=== PATIENT | female | born 1980 | race American Indian/Alaskan Native ===

== ENCOUNTER 2017-04-01 12:41 | Inpatient (IN) | payer MEDICAID ==
[2017-04-01] MEDS ORDERED: COLACE PO PRN (13:47)
[2017-04-01] MEDS ORDERED: POLYCILLIN/NS 2 GM/100 ML 2 GM/100 ML BAG IV ONE (13:47)
[2017-04-01] MEDS ORDERED: TYLENOL PO PRN (13:47)
[2017-04-01] MEDS ORDERED: ZOFRAN IV PRN (13:47)
[2017-04-01] MEDS ORDERED: CELESTONE SOLUSPAN IM ONE (13:51)
--- NOTE | 2017-04-01 13:56 | History and Physical Report ---
History of Present Illness Date of examination: 04/01/17 Date of admission: 04/01/17 12:49 Chief complaint: Advanced Cervical Dilation History of present illness: Late entry to care at 29 1/7 weeks, course complicated by Advanced Cervical Dilation, CTX, Anemia, Vitamin D Deficiency, and HSV II. 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 Family/Genetic History: none Social history: single, smoking - Obstetrical History Expected Date of Delivery: 06/02/17 Actual Gestation: 31 Week(s) 1 Day(s) : 5 Para: 4 Hx # Term Pregnancies: 4 Number of Living Children: 4 #1 Infant Gender: Female year: 2,000 Birthweight: 2.608 kg Method of Delivery: Vaginal Gestational age at delivery: 38 Complications: none #2 Gender: Male year: 2,004 Birthweight: 3.374 kg Method of Delivery: Vaginal Gestational age at delivery: 37 #3 Gender: Female year: 2,007 Birthweight: 2.977 kg Method of Delivery: Vaginal Gestational age at delivery: 37 Complications: none #4 Gender: Male year: 2,014 Birthweight: 2.92 kg Method of Delivery: Vaginal Gestational age at delivery: 38 Medications and Allergies Allergies Allergy/AdvReac Type Severity Reaction Status Date / Time No Known Allergies Allergy Unverified 04/01/17 12:48 Active Meds: Active Medications Acetaminophen (Tylenol) 650 mg PO Q4H PRN PRN Reason: Pain MILD(1-3)/Fever >100.5/LEUNG Betamethasone Acet/Betameth SodPhos ([place] Soluspan) 12 mg IM ONCE ONE Stop: 04/01/17 13:52 Docusate Sodium (Colace) 100 mg PO Q12H PRN PRN Reason: Constipation Lactated Ringer's (Lactated Ringers) 500 mls @ 999 mls/hr IV BOLUS ONE Stop: 04/01/17 14:30 Ampicillin Sodium (Polycillin/Ns 1 Gm/50 Ml) 1 gm in 50 mls @ 100 mls/hr IV Q4HR ARUNA PRN Reason: Protocol Ampicillin Sodium (Polycillin/Ns 2 Gm/100 Ml) 2 gm in 100 mls @ 100 mls/hr IV ONCE ONE PRN Reason: Protocol Stop: 04/01/17 14:46 Multivitamins/Iron/Calcium ( Vitamin) 1 each PO QDAY ARUNA Ondansetron HCl (Zofran) 4 mg IV Q6H PRN PRN Reason: Nausea And Vomiting Zolpidem Tartrate (Ambien) 10 mg PO ONCE PRN PRN Reason: Sleep Review of Systems All systems: negative - Vital Signs Vital signs: Vital Signs Pulse BP 85 124/74 04/01/17 13:20 04/01/17 13:20 Temp Pulse Resp BP Pulse Ox 97.4 F L 96 H 18 124/74 99 04/01/17 13:23 04/01/17 13:26 04/01/17 13:23 04/01/17 13:23 04/01/17 13:26 - Physical Exam Breasts: Positive: normal Cardiovascular: Regular rate Lungs: Positive: Clear to auscultation, Normal air movement Abdomen: Positive: normal appearance, normal bowel sounds Genitourinary (Female): Positive: normal external genitalia, normal perenium Vagina: Positive: normal moisture Uterus: Positive: enlarged Anus/Rectum: Positive: normal perianal skin Extremities: Positive: normal - Obstetrical FHR: category 1 Uterine Contraction Monitor Mode: External Cervical Dilatation: 4 (Intact) Cervical Effacement Percentage: 50 station: -3 Uterine Contraction Pattern: Irregular Uterine Tone Measurement Phase: Resting Uterine Contraction Intensity: Mild Results All other labs normal. Assessment and Plan A: IUP @ 31 1/7 Weeks Category I Tracing PTL/Advanced Cervical Dilatation P: Admit to L&D per routine orders Growth OBUS ABX Prophylaxis IV Hydration Bedrest Consult Betamethsome Series Consult Dr. Schultz due to Labor
[2017-04-01] MEDS ORDERED: LACTATED RINGERS 500 ML IV ONE (14:00)
--- NOTE | 2017-04-01 14:14 | Admit Criteria Form ---
Admission Criteria Documentation: LABOR, THREATENED Clinical Indications for Admission to Inpatient Care (Place 'X' for any and all applicable criteria): Admission to inpatient status for two mid-nights or more is indicated for ANY ONE of the following 1,2,3: [ ]I. Condition requiring premature delivery (eg, premature rupture of membranes with nonreassuring status, chorioamnionitis) [A]. See Vaginal Delivery guideline as appropriate [ ]II. premature rupture of membranes (PPROM) (eg, for monitoring of well-being, development of chorioamnionitis)[A][B] [ ]III. distress or demise [ ]IV. Significant maternal disease (eg, infection) identified (eg, pyelonephritis, pneumonia) that requires initial inpatient treatment (eg, IV antibiotics, close monitoring) [ ]V. Significant vaginal bleeding or any vaginal bleeding with known placental previa, vasa previa, or placenta accreta.(7)(8) See Delivery guideline as appropriate. [ ]. Complications of tocolytic treatment (eg, pulmonary edema, hypotension) (9)(10) [X]VII. Inpatient admission required rather than observation care (Also use Labor, Threatened: Observation Care Criteria as appropriate) because of 1 or more of the following: [X ]a) Continued monitoring that requires inpatient care [ ]b) Tocolytic therapy needed that requires inpatient care [ ]c) Inability to stop labor. See Vaginal Delivery or Delivery guideline as appropriate. Extended stay beyond goal length of stay may be needed for (1)(2) [ ]a) Significant infection (eg, pneumonia,chorioamnionitis)(17) [ ]b) Continued uterine contractions [ ]c) demise [ ]d) Continued vaginal bleeding or placental abnormality [ ]e) Complications of tocolytic treatment (eg, pulmonary edema, hypotension)( 15) [ ]f) Expectant management of premature rupture of membranes[A] The original [employer] content created by Rafi Steen has been revised. The portions of the content which have been revised are identified through the use of italic text or in bold, and Rafi Steen has neither reviewed nor approved the modified material. All other unmodified content is copyright [facility] [facility] [employer]. Please see references footnoted in the original [facility] edition 2017 Admission Criteria Met: Yes
[2017-04-01 15:45] LABS: Basophils % (Auto) 0.2 % (0.0-1.8); Eosinophils % (Auto) 0.8 % (0.0-4.3); Hematocrit 27.9 % (30.3-42.9); Hemoglobin 8.7 gm/dl (10.1-14.3); Mean Corpuscular HGB Conc 31 % (30-34); Mean Corpuscular Hemoglobin 23 pg (28-32); Mean Corpuscular Volume 73 fl (79-97); Platelet Count 176 K/mm3 (140-440); Red Blood Count 3.81 M/mm3 (3.65-5.03); White Blood Count 14.9 K/mm3 (4.5-11.0)
[2017-04-01] MEDS ORDERED: MAGNESIUM SULFATE 4GM/100ML 4 GM/100 ML BAG IV ONE (16:30)
[2017-04-01] MEDS: MAGNESIUM SULFATE 40GM/1000ML 40 GM/1,000 ML BAG IV SCH (17:53)
[2017-04-01] MEDS ORDERED: LACTATED RINGERS 1,000 ML ONE (19:42)
[2017-04-01] MEDS: POLYCILLIN/NS 1 GM/50 ML 1 GM/50 ML BAG IV SCH (19:52)
[2017-04-01] MEDS: AMBIEN PO PRN (21:54)
[2017-04-02] MEDS: POLYCILLIN/NS 1 GM/50 ML 1 GM/50 ML BAG IV SCH (01:40)
[2017-04-02 02:32] LABS: Bacteria,Urine 1+ /HPF (Negative); Bilirubin,Urine NEG (Negative); Blood,Urine NEG (Negative); Ketones,Urine TR mg/dL (Negative); Leukocyte Esterase,Urine MOD (Negative); Mucus,Urine FEW /HPF; Nitrite,Urine NEG (Negative); Protein,Urine <15 mg/dL mg/dL (Negative); Urobilinogen,Urine < 2.0 mg/dL (<2.0)
--- NOTE | 2017-04-02 07:11 | Ultrasound Report ---
Gestation: Single Position: Cephalic Heart Rate: 152 BPM
[2017-04-02] MEDS: PRENATAL VITAMIN PO SCH (10:14)
[2017-04-02] MEDS ORDERED: LACTATED RINGERS 1,000 ML ONE (13:04)
[2017-04-02] MEDS: MAGNESIUM SULFATE 40GM/1000ML 40 GM/1,000 ML BAG IV SCH (13:23)
--- NOTE | 2017-04-02 14:22 | Progress Note ---
Assessment and Plan - Patient Problems (1) 31 weeks gestation of Onset Date: 04/02/17 Current Visit: Yes Status: Acute Plan to address problem: A: IUP @ 31 2/7 weeks contractions - resolved with magnesium tocolysis Advanced cervical dilatation - stable. P: Continue with current management Awaiting APA consultation (2) contractions Onset Date: 04/02/17 Current Visit: Yes Status: Acute Subjective - Subjective Date of service: 04/02/17 Principal diagnosis: IUP @ 31 2/7 weeks; PTL; Advanced cervical dilatation Interval history: Pt states she is feeling well. Denies further contractions, and currently on Magnesium Sulfates @ 2gm/hr and Ampicillin. She received her 2nd dose of steroids. Patient reports: movement normal, no new complaints, no loss of fluid, no vaginal bleeding, no contractions Objective - Vital Signs Vital Signs: Vital Signs - 12hr 04/02/17 04/02/17 04/02/17 02:27 02:32 02:37 Temperature Pulse Rate 93 H 97 H 91 H Respiratory Rate Blood Pressure O2 Sat by Pulse 98 98 99 Oximetry 04/02/17 04/02/17 04/02/17 02:42 02:47 02:52 Temperature Pulse Rate 93 H 93 H 91 H Respiratory Rate Blood Pressure O2 Sat by Pulse 99 98 99 Oximetry 04/02/17 04/02/17 04/02/17 02:57 03:00 03:02 Temperature Pulse Rate 90 87 91 H Respiratory Rate Blood Pressure 117/55 O2 Sat by Pulse 99 99 Oximetry 04/02/17 04/02/17 04/02/17 03:07 03:12 03:17 Temperature Pulse Rate 95 H 94 H 95 H Respiratory Rate Blood Pressure O2 Sat by Pulse 98 99 98 Oximetry 04/02/17 04/02/17 04/02/17 03:22 03:27 03:32 Temperature Pulse Rate 100 H 99 H 96 H Respiratory Rate Blood Pressure O2 Sat by Pulse 99 98 98 Oximetry 04/02/17 04/02/17 04/02/17 03:37 03:42 03:47 Temperature Pulse Rate 96 H 95 H 94 H Respiratory Rate Blood Pressure O2 Sat by Pulse 98 98 98 Oximetry 04/02/17 04/02/17 04/02/17 03:52 03:57 04:01 Temperature Pulse Rate 94 H 96 H 91 H Respiratory Rate Blood Pressure 107/56 O2 Sat by Pulse 98 98 Oximetry 04/02/17 04/02/17 04/02/17 05:00 08:08 08:09 Temperature Pulse Rate 90 92 H 95 H Respiratory Rate Blood Pressure 118/64 106/66 O2 Sat by Pulse 99 Oximetry 04/02/17 04/02/17 04/02/17 08:14 08:19 09:01 Temperature Pulse Rate 100 H 95 H 95 H Respiratory Rate Blood Pressure 107/60 O2 Sat by Pulse 98 99 Oximetry 04/02/17 04/02/17 04/02/17 10:00 10:05 10:10 Temperature Pulse Rate 92 H 94 H 96 H Respiratory Rate Blood Pressure 112/63 O2 Sat by Pulse 99 98 Oximetry 04/02/17 04/02/17 04/02/17 10:15 10:20 10:21 Temperature Pulse Rate 97 H 94 H 94 H Respiratory Rate Blood Pressure O2 Sat by Pulse 99 99 89 Oximetry 04/02/17 04/02/17 04/02/17 10:22 10:23 10:25 Temperature 96.7 F L Pulse Rate 90 92 H 94 H Respiratory 20 Rate Blood Pressure 122/76 122/76 O2 Sat by Pulse 100 Oximetry 04/02/17 04/02/17 04/02/17 10:30 10:35 10:40 Temperature Pulse Rate 95 H 96 H 92 H Respiratory Rate Blood Pressure O2 Sat by Pulse 99 100 100 Oximetry 04/02/17 04/02/17 04/02/17 10:45 10:50 10:55 Temperature Pulse Rate 94 H 93 H 92 H Respiratory Rate Blood Pressure O2 Sat by Pulse 99 99 100 Oximetry 04/02/17 04/02/17 04/02/17 11:00 11:01 12:01 Temperature Pulse Rate 93 H 90 89 Respiratory Rate Blood Pressure 115/82 110/65 O2 Sat by Pulse 99 Oximetry 04/02/17 04/02/17 04/02/17 13:01 13:06 13:07 Temperature 97.3 F L Pulse Rate 91 H 89 91 H Respiratory 20 Rate Blood Pressure 128/76 132/60 132/60 O2 Sat by Pulse 86 99 Oximetry 04/02/17 04/02/17 04/02/17 13:12 13:17 13:22 Temperature Pulse Rate 87 93 H 94 H Respiratory Rate Blood Pressure O2 Sat by Pulse 98 100 100 Oximetry 04/02/17 14:01 Temperature Pulse Rate 86 Respiratory Rate Blood Pressure 117/72 O2 Sat by Pulse Oximetry - Exam Breasts: deferred Lungs: Clear to auscultation Abdomen: Present: normal appearance, soft Uterus: Present: normal FHR: category 1 Uterine Contraction Monitor Mode: External - Labs Labs: Abnormal Labs 04/01/17 04/01/17 04/02/17 14:35 22:01 01:50 WBC 14.9 H Hgb 8.7 L Hct 27.9 L MCV 73 L MCH 23 L RDW 21.0 H Lymph % (Auto) 12.1 L [place] % (Auto) 8.0 H [place] # 1.2 H Seg Neutrophils % 78.9 H Seg Neutrophils # 11.8 H Magnesium 4.40 H Urine WBC (Auto) 25.0 H 04/02/17 04/02/17 05:51 12:06 WBC Hgb Hct MCV MCH RDW Lymph % (Auto) [place] % (Auto) [place] # Seg Neutrophils % Seg Neutrophils # Magnesium 5.20 H 5.10 H Urine WBC (Auto) Laboratory Results - last 24 hr 04/01/17 04/01/17 04/01/17 14:35 14:35 22:01 WBC 14.9 H RBC 3.81 Hgb 8.7 L Hct 27.9 L MCV 73 L MCH 23 L MCHC 31 RDW 21.0 H Plt Count 176 Lymph % (Auto) 12.1 L [place] % (Auto) 8.0 H Eos % (Auto) 0.8 Baso % (Auto) 0.2 Lymph # 1.8 [place] # 1.2 H Eos # 0.1 Baso # 0.0 Seg Neutrophils % 78.9 H Seg Neutrophils # 11.8 H Magnesium 4.40 H Urine Color Urine Turbidity Urine pH Ur Specific [place] Urine Protein Urine Glucose (UA) Urine Ketones Urine Blood Urine Nitrite Urine Bilirubin Urine Urobilinogen Ur Leukocyte Esterase Urine WBC (Auto) Urine RBC (Auto) U Epithel Cells (Auto) Urine Bacteria (Auto) Urine Mucus Blood Type O POSITIVE Antibody Screen Negative 04/02/17 04/02/17 04/02/17 01:50 05:51 12:06 WBC RBC Hgb Hct MCV MCH MCHC RDW Plt Count Lymph % (Auto) [place] % (Auto) Eos % (Auto) Baso % (Auto) Lymph # [place] # Eos # Baso # Seg Neutrophils % Seg Neutrophils # Magnesium 5.20 H 5.10 H Urine Color Straw Urine Turbidity Clear Urine pH 7.0 Ur Specific [place] 1.013 Urine Protein <15 mg/dl Urine Glucose (UA) 50 Urine Ketones Tr Urine Blood Neg Urine Nitrite Neg Urine Bilirubin Neg Urine Urobilinogen < 2.0 Ur Leukocyte Esterase Mod Urine WBC (Auto) 25.0 H Urine RBC (Auto) 3.0 U Epithel Cells (Auto) < 1.0 Urine Bacteria (Auto) 1+ Urine Mucus Few Blood Type Antibody Screen
[2017-04-02] MEDS ORDERED: CELESTONE SOLUSPAN IM ONE (17:00)
--- NOTE | 2017-04-02 18:27 | Consultation ---
History of Present Illness Consult date: 04/02/17 Requesting physician: JAXON NELSON Reason for consult: contractions History of present illness: Thank you for your recent consultation regarding the above named patient. As you are aware, this is a 36 year old para 4004 at 31-32 weeks gestation for whom I recently provided a perinatology consultation. Current Presentation: The patient [facility] with Advanced Cervical Dilation, CTX, Anemia, Vitamin D Deficiency, and HSV II. Her initial exam was 4 cm dilated and the follow-up exam She has been admitted due to cervical dilation. The patient currently denies leakage of fluid per vagina or vaginal bleeding. Patient admits to continued lower abdominal and back discomfort. Patient denies fever, chills, nausea, vomiting or diarrhea. At the time of my evaluation the patient was relatively comfortable but admitted to ongoing uterine contractions. Nitrazine testing is negative. Past Obstetrical Medical and Surgical History: See details in patient's chart. 2000: at term. BW: 2608 kg 2004: at term. 2007: at term. 2014: at term [facility] Ultrasonography: ? See notes in patients chart ? Cephalic. 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 Family/Genetic History: none - Obstetrical History : 5 #1 Gender: Female year: 2,000 Birthweight: 2.608 kg Method of Delivery: Vaginal Gestational age at delivery: 38 Complications: none #2 Gender: Male year: 2,004 Birthweight: 3.374 kg Method of Delivery: Vaginal Gestational age at delivery: 37 #3 Gender: Female year: 2,007 Birthweight: 2.977 kg Method of Delivery: Vaginal Gestational age at delivery: 37 Complications: none #4 Infant Gender: Male year: 2,014 Birthweight: 2.92 kg Method of Delivery: Vaginal Gestational age at delivery: 38 Medications and Allergies Allergies Allergy/AdvReac Type Severity Reaction Status Date / Time No Known Allergies Allergy Unverified 04/01/17 12:48 Home Medications Medication Instructions Recorded Confirmed Last Taken Type Ferrous Sulfate 325 mg PO BID 04/01/17 04/01/17 04/01/17 09:00 History 325 mg Tablet 1 tab PO DAILY 04/01/17 04/01/17 04/01/17 09:00 History 1 Active Meds: Active Medications Acetaminophen (Tylenol) 650 mg PO Q4H PRN PRN Reason: Pain MILD(1-3)/Fever >100.5/LEUNG Last Admin: 04/02/17 13:40 Dose: 650 mg Docusate Sodium (Colace) 100 mg PO Q12H PRN PRN Reason: Constipation Magnesium Sulfate (Magnesium Sulfate 40gm/1000ml) 40 gm in 1,000 mls @ 50 mls/ hr IV DIRECT ARUNA PRN Reason: 2 GM/HR Last Admin: 04/02/17 13:23 Dose: 2 gm/hr, 50 mls/hr Multivitamins/Iron/Calcium ( Vitamin) 1 each PO QDAY ARUNA Last Admin: 04/02/17 10:14 Dose: 1 each Ondansetron HCl (Zofran) 4 mg IV Q6H PRN PRN Reason: Nausea And Vomiting Zolpidem Tartrate (Ambien) 10 mg PO ONCE PRN PRN Reason: Sleep Last Admin: 04/01/17 21:54 Dose: 10 mg - Vital Signs Vital signs: Vital Signs Pulse BP 85 124/74 04/01/17 13:20 04/01/17 13:20 Temp Pulse Resp BP Pulse Ox 97.6 F 81 20 102/50 99 04/02/17 16:21 04/02/17 18:02 04/02/17 16:21 04/02/17 18:02 04/02/17 16:20 Results Result Diagrams: 04/01/17 14:35 Abnormal lab results 04/01/17 04/02/17 04/02/17 Range/Units 22:01 01:50 05:51 Magnesium 4.40 H 5.20 H (1.7-2.3) mg/dL Urine WBC (Auto) 25.0 H (0.0-6.0) /HPF 04/02/17 Range/Units 12:06 Magnesium 5.10 H (1.7-2.3) mg/dL Urine WBC (Auto) (0.0-6.0) /HPF All other labs normal. Assessment and Plan ASSESSMENT / DIAGNOSIS ? As stated above this is an IUP at 31+ weeks with cervical dilatation ? Advanced cervical dilation. ? Continued contractions. ? It would appear that the current presentation is due to uterine activity. ? The aforementioned findings place this patient at significant risk for spontaneous RECOMMENDATIONS & ORDERS 1. [facility]ued [facility] 2. We are in agreement with previous MgSO4 tocolysis, neuroprotection and observation 3. Betamethasone to enhance lung maturation 4. Follow-up bedside ulrasound report. 5. Heart Assessment via NST q shift 6. Continuous uterine tocodynametry while admitted 7. Intravenous fluid hydration: 8. Testing to rule out bacterial vaginosis may be indicated in this patient. As you are aware, treatment of bacterial vaginosis in patients who are at increased risk for spontaneous or who are symptomatic of BV has been shown to decrease the likelihood of . 9. If this patient is subsequently found to have BV we would recommend an agent with improved coverage of Gardnerella vaginalis and other facultatively anaerobic gram-variable organisms associated with BV such as Metronidazole 500 mg BID x 7 days (if clinically indicated) 10. Instruct nurses to call M.D. for > 6 contractions per hour 11. If uterine contractions persist or worsen or if there is further cervical dilation; this patient may NOT be a candidate for additional tocolysis and preparations should be made for the possibility of a premature . 12. If Urine culture shows evidence of infection treat as follows: Bactrim DS 1 tablet P.O. BID x 5 days Follow-up urine culture sensitivity when available. 13. Continue with Procardia. 14. Re-evaluate cervix after 24-48 hours. 15. Instruct nurses to call M.D. for any of the following: Temp > 101 Acute onset abdominal pain, Vaginal bleeding or Rupture of membranes Acute pulmonary symptoms (shortness of breath, dyspnea, hemoptysis) 16. At present, an expectant strategy should allow for prolongation ; however, the previously noted contraindications to continued tocolysis noted above should also be appreciated. Thank you for allowing us to participate in the care of this patient. We look forward to the opportunity to assist in her continued management. If you have any questions, please contact our office at [phone].
[2017-04-02] MEDS: AMBIEN PO PRN (21:31)
[2017-04-02] MEDS: STADOL IV PRN (21:49)
[2017-04-03] MEDS ORDERED: LACTATED RINGERS 1,000 ML ONE ×2 (02:06→17:28)
[2017-04-03] MEDS: MAGNESIUM SULFATE 40GM/1000ML 40 GM/1,000 ML BAG IV SCH (07:24)
--- NOTE | 2017-04-03 08:10 | Progress Note ---
Assessment and Plan - Patient Problems (1) 31 weeks gestation of Onset Date: 04/02/17 Current Visit: Yes Status: Acute Plan to address problem: A: IUP @ 31 3/7 weeks contractions - resolved with magnesium tocolysis Bacteria Vaginosis Advanced cervical dilatation - stable. P: Continue with current management Will D/C Magnesium sulfate and begin Procardia Currently on Flagyl 500mg BID Appreciate APA consultation (2) contractions Onset Date: 04/02/17 Current Visit: Yes Status: Acute Subjective - Subjective Date of service: 04/03/17 Principal diagnosis: IUP @ 31 3/7 weeks; PTL; Advanced cervical dilatation Interval history: Pt states she is feeling well. Denies further contractions, and currently on Magnesium Sulfates @ 2gm/hr and Ampicillin. She received her 2nd dose of steroids. Patient reports: movement normal, no new complaints, no loss of fluid, no vaginal bleeding, no contractions Objective - Vital Signs Vital Signs: Vital Signs - 12hr 04/02/17 04/02/17 04/02/17 21:02 21:30 21:54 Temperature 97.0 F L Pulse Rate 87 0 L 85 Respiratory 18 Rate Blood Pressure 110/59 0/0 O2 Sat by Pulse 99 Oximetry 04/02/17 04/02/17 04/02/17 21:59 22:04 22:09 Temperature Pulse Rate 95 H 93 H 90 Respiratory Rate Blood Pressure O2 Sat by Pulse 97 98 97 Oximetry 04/02/17 04/02/17 04/02/17 22:11 22:13 22:14 Temperature Pulse Rate 85 85 86 Respiratory Rate Blood Pressure 118/68 O2 Sat by Pulse 94 94 Oximetry 04/02/17 04/02/17 04/02/17 22:19 22:24 22:25 Temperature Pulse Rate 86 85 80 Respiratory Rate Blood Pressure O2 Sat by Pulse 95 95 94 Oximetry 04/02/17 04/02/17 04/02/17 22:29 22:34 22:39 Temperature Pulse Rate 81 83 82 Respiratory Rate Blood Pressure O2 Sat by Pulse 97 95 95 Oximetry 04/02/17 04/02/17 04/02/17 22:44 22:49 22:54 Temperature Pulse Rate 79 82 81 Respiratory Rate Blood Pressure O2 Sat by Pulse 96 96 95 Oximetry 04/02/17 04/02/17 04/02/17 22:59 23:00 23:04 Temperature Pulse Rate 81 82 82 Respiratory Rate Blood Pressure 107/57 O2 Sat by Pulse 95 96 Oximetry 04/02/17 04/02/17 04/02/17 23:09 23:14 23:19 Temperature Pulse Rate 81 81 82 Respiratory Rate Blood Pressure O2 Sat by Pulse 96 96 96 Oximetry 04/02/17 04/02/17 04/02/17 23:24 23:29 23:34 Temperature Pulse Rate 84 81 81 Respiratory Rate Blood Pressure O2 Sat by Pulse 97 96 96 Oximetry 04/02/17 04/02/17 04/02/17 23:39 23:44 23:49 Temperature Pulse Rate 80 82 82 Respiratory Rate Blood Pressure O2 Sat by Pulse 96 96 96 Oximetry 04/02/17 04/02/17 04/03/17 23:54 23:59 00:01 Temperature Pulse Rate 78 83 75 Respiratory Rate Blood Pressure 100/55 O2 Sat by Pulse 96 96 Oximetry 04/03/17 04/03/17 04/03/17 00:04 00:09 00:14 Temperature Pulse Rate 82 77 81 Respiratory Rate Blood Pressure O2 Sat by Pulse 97 98 97 Oximetry 04/03/17 04/03/17 04/03/17 00:19 00:24 00:29 Temperature Pulse Rate 81 84 80 Respiratory Rate Blood Pressure O2 Sat by Pulse 97 97 99 Oximetry 04/03/17 04/03/17 04/03/17 00:34 00:40 00:45 Temperature Pulse Rate 81 86 80 Respiratory Rate Blood Pressure O2 Sat by Pulse 98 99 98 Oximetry 04/03/17 04/03/17 04/03/17 00:50 00:55 01:00 Temperature Pulse Rate 85 79 78 Respiratory Rate Blood Pressure 100/55 O2 Sat by Pulse 100 100 100 Oximetry 04/03/17 04/03/17 04/03/17 01:05 01:10 01:15 Temperature Pulse Rate 82 80 81 Respiratory Rate Blood Pressure O2 Sat by Pulse 99 98 99 Oximetry 04/03/17 04/03/17 04/03/17 01:16 01:20 01:25 Temperature Pulse Rate 71 79 77 Respiratory Rate Blood Pressure O2 Sat by Pulse 89 97 97 Oximetry 04/03/17 04/03/17 04/03/17 01:30 01:35 01:40 Temperature Pulse Rate 77 77 81 Respiratory Rate Blood Pressure O2 Sat by Pulse 97 98 97 Oximetry 04/03/17 04/03/17 04/03/17 01:45 01:50 01:55 Temperature Pulse Rate 77 79 81 Respiratory Rate Blood Pressure O2 Sat by Pulse 97 98 98 Oximetry 04/03/17 04/03/17 04/03/17 02:00 02:02 02:06 Temperature Pulse Rate 79 83 79 Respiratory Rate Blood Pressure 103/66 O2 Sat by Pulse 98 97 Oximetry 04/03/17 04/03/17 04/03/17 02:11 03:00 04:01 Temperature Pulse Rate 73 75 78 Respiratory Rate Blood Pressure 97/54 104/57 O2 Sat by Pulse 98 Oximetry 04/03/17 04/03/17 04/03/17 05:00 06:01 07:00 Temperature Pulse Rate 81 80 80 Respiratory Rate Blood Pressure 97/55 97/56 100/55 O2 Sat by Pulse Oximetry 04/03/17 04/03/17 04/03/17 07:48 07:49 07:54 Temperature Pulse Rate 82 84 90 Respiratory Rate Blood Pressure 123/71 O2 Sat by Pulse 100 99 Oximetry 04/03/17 04/03/17 08:01 08:05 Temperature 98.3 F Pulse Rate 81 66 Respiratory 16 Rate Blood Pressure 112/58 115/65 O2 Sat by Pulse Oximetry - Exam Breasts: deferred Cardiovascular: Regular rate Lungs: Clear to auscultation Abdomen: Present: normal appearance Uterus: Present: normal FHR: category 1 Uterine Contraction Monitor Mode: External - Labs Labs: Abnormal Labs 04/01/17 04/01/17 04/02/17 14:35 22:01 01:50 WBC 14.9 H Hgb 8.7 L Hct 27.9 L MCV 73 L MCH 23 L RDW 21.0 H Lymph % (Auto) 12.1 L [place] % (Auto) 8.0 H [place] # 1.2 H Seg Neutrophils % 78.9 H Seg Neutrophils # 11.8 H Magnesium 4.40 H Urine WBC (Auto) 25.0 H 04/02/17 04/02/17 04/02/17 05:51 12:06 19:41 WBC Hgb Hct MCV MCH RDW Lymph % (Auto) [place] % (Auto) [place] # Seg Neutrophils % Seg Neutrophils # Magnesium 5.20 H 5.10 H 4.80 H Urine WBC (Auto) 04/03/17 04/03/17 00:37 05:18 WBC Hgb Hct MCV MCH RDW Lymph % (Auto) [place] % (Auto) [place] # Seg Neutrophils % Seg Neutrophils # Magnesium 5.40 H 5.50 H Urine WBC (Auto) Laboratory Results - last 24 hr 04/02/17 04/02/17 04/03/17 12:06 19:41 00:37 Magnesium 5.10 H 4.80 H 5.40 H 04/03/17 05:18 Magnesium 5.50 H
[2017-04-03 09:06] LABS: Urine Drugs of Abuse Note Disclamer
[2017-04-03] MEDS: PRENATAL VITAMIN PO SCH (09:42)
[2017-04-03] MEDS: FLAGYL PO SCH ×2 (09:43→23:39)
[2017-04-03] MEDS: PROCARDIA*For Tocolysis only PO SCH ×2 (09:43→17:33)
--- NOTE | 2017-04-03 16:00 | Consultation ---
History of Present Illness Reason for consult: other (Patient is currently 31.3 weeks The patient was admitted to [facility] with Advanced Cervical Dilation and CTX, In addition patient diagnosed with Anemia, Vitamin D Deficiency, and HSV II. Resolved contractions S/P MgSO4. Currently on PO Procardia and S/P BMZ for FLM Denies VB, ADB pain , and regular contractions. 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 Family/Genetic History: none - Obstetrical History : 5 #1 Gender: Female year: 2,[birth year] Birthweight: 2.608 kg Method of Delivery: Vaginal Gestational age at delivery: 38 Complications: none #2 Infant Gender: Male year: 2[birth year] Birthweight: 3.374 kg Method of Delivery: Vaginal Gestational age at delivery: 37 #3 Infant Gender: Female year: 2,007 Birthweight: 2.977 kg Method of Delivery: Vaginal Gestational age at delivery: 37 Complications: none #4 Infant Gender: Male year: 2,014 Birthweight: 2.92 kg Method of Delivery: Vaginal Gestational age at delivery: 38 Medications and Allergies Allergies Allergy/AdvReac Type Severity Reaction Status Date / Time No Known Allergies Allergy Unverified 04/01/17 12:48 Home Medications Medication Instructions Recorded Confirmed Last Taken Type Ferrous Sulfate 325 mg PO BID 04/01/17 04/01/17 04/01/17 09:00 History 325 mg Tablet 1 tab PO DAILY 04/01/17 04/01/17 04/01/17 09:00 History 1 Active Meds: Active Medications Acetaminophen (Tylenol) 650 mg PO Q4H PRN PRN Reason: Pain MILD(1-3)/Fever >100.5/LEUNG Last Admin: 04/02/17 13:40 Dose: 650 mg Butorphanol Tartrate (Stadol) 2 mg IV Q2H PRN PRN Reason: Labor Pain Last Admin: 04/02/17 21:49 Dose: 2 mg Docusate Sodium (Colace) 100 mg PO Q12H PRN PRN Reason: Constipation Metronidazole (Flagyl) 500 mg PO Q12HR [facility] Last Admin: 04/03/17 09:43 Dose: 500 mg Multivitamins/Iron/Calcium ( Vitamin) 1 each PO QDAY [facility] Last Admin: 04/03/17 09:42 Dose: 1 each Nifedipine (Procardia*For Tocolysis Only*) 10 mg PO Q8H ARUNA Last Admin: 04/03/17 09:43 Dose: 10 mg Ondansetron HCl (Zofran) 4 mg IV Q6H PRN PRN Reason: Nausea And Vomiting Zolpidem Tartrate (Ambien) 10 mg PO ONCE PRN PRN Reason: Sleep Last Admin: 04/02/17 21:31 Dose: 10 mg Review of Systems Constitutional: no fever, no chills Eyes: deferred Ears, nose, mouth and throat: deferred Cardiovascular: no chest pain, no syncope, no shortness of breath Respiratory: no shortness of breath Breasts: deferred Genitourinary: other (back pain ), no vaginal bleeding, no vaginal discharge, no pelvic pain Neurological: no syncope Psychiatric: no depression Hematologic/Lymphatic: no easy bleeding Allergic/Immunologic: no wheezing - Vital Signs Vital signs: Vital Signs Pulse BP 85 124/74 04/01/17 13:20 04/01/17 13:20 Temp Pulse Resp BP Pulse Ox 98.3 F 91 H 16 126/66 99 04/03/17 08:05 04/03/17 13:50 04/03/17 08:05 04/03/17 13:50 04/03/17 07:54 - Physical Exam Breasts: Positive: deferred Cardiovascular: Regular rate Lungs: Positive: Normal air movement Abdomen: Negative: tenderness, guarding Extremities: Negative: tenderness - Obstetrical FHR: category 1 (previous tracing) Uterine Contraction Monitor Mode: External (no contraction palpable. Patient to be placed on TOCO) Cervical Dilatation: 4 (Dr Aleksey Newell perform SVE 04/02/17 which was stable from previous exam ) Results Result Diagrams: 04/01/17 14:35 Abnormal lab results 04/02/17 04/03/17 04/03/17 Range/Units 19:41 00:37 05:18 Magnesium 4.80 H 5.40 H 5.50 H (1.7-2.3) mg/dL All other labs normal. Assessment and Plan ASSESSMENT / DIAGNOSIS 1. As stated above this is an IUP at 31.3 weeks with cervical dilatation 2. Advanced cervical dilation. 3. Resolved contraction S/P MgSO4 4. S/P BMZ for FLM 5. Po Procardia 6. It would appear that the presentation was due to uterine activity. 7 Anemia 8. S/P NICU RECOMMENDATIONS & ORDERS 1. Continue with Procardia. 2. Re-evaluate cervix 4. Document Negative cultures 5. May consider discharge home with no regular contractions, no cervical change , no /maternal compromise, and afebrile status Thank you for allowing us to participate in the care of this patient. We look forward to the opportunity to assist in her continued management. If you have any questions, please contact our office at [phone].
[2017-04-03] MEDS: STADOL IV PRN (17:33)
[2017-04-03] MEDS: AMBIEN PO PRN (23:39)
[2017-04-04] MEDS: PROCARDIA*For Tocolysis only PO SCH ×2 (02:28→10:44)
[2017-04-04] MEDS ORDERED: LACTATED RINGERS 1,000 ML ONE (05:46)
[2017-04-04] MEDS ORDERED: LACTATED RINGERS 1,000 ML IV SCH (06:00)
[2017-04-04 08:02] VITALS: BP 130/73
[2017-04-04] MEDS: PRENATAL VITAMIN PO SCH (10:44)
[2017-04-04] MEDS: FLAGYL PO SCH (10:44)
--- NOTE | 2017-04-04 12:27 | Discharge Summary ---
Providers - Providers Date of Admission: 04/01/17 13:47 Date of discharge: 04/04/17 Attending physician: SULTANA JARAMILLO MD 04/01/17 13:47 Consult to Physician [CONS] Routine Consulting Provider: KAILASH BAY Reason For Exam: advanced cervical dilation Place consult to:: Notified:: yes Phone number called:: [phone] Was contact made?: Yes If yes, spoke with:: Elicia Grider called:: 16:54 04/02/17 06:48 Consult to Physician [CONS] Routine Consulting Provider: DONNA WATSON I Reason For Exam: PTL at [address] consult to:: [facility] Notified:: ANSWERING SERVICE Phone number called:: [phone] Was contact made?: Yes If yes, spoke with:: Time called:: 07:20 Comment:: SPOKE WITH Primary care physician: SULTANA JARAMILLO MD Hospitalization Reason for admission: IUP - , labor Other procedures: none complications: none Discharge diagnosis: other (IUP @ 31 4/7 weeks; PTL - resolved; Advanced cervical dilatation) Hospital course: Pt is a 36yo BF EGA 31 4/7 weeks admitted for labor and advanced cervical dilatation, resolved with IV hydration, IV Magnesium sulfate tocolysis and now on PO Procardia. She received IV Ampicillin, IM Betamethasone and PO Flagyl, and is currently stable without contractions or cervical change, and cleared for discharge as per [facility] consultation. Condition at discharge: Good Disposition: DC-01 TO HOME OR SELFCARE - Discharge Diagnoses (1) 31 weeks gestation of Status: Acute (2) contractions Status: Resolved Plan - Discharge Medications Prescriptions: metroNIDAZOLE [Flagyl TAB] 500 mg PO Q12HR #14 tablet NIFEdipine 10 mg PO TID #30 cap - Provider Discharge Summary Activity: routine, no sex for 6 weeks, no heavy lifting 4 weeks, no strenuous exercise Diet: routine Instructions: routine Additional instructions: [] Smoking cessation referral if applicable(refer to patient education folder for contact #) [] Refer to [facility] Booklet Call your doctor immediately for: * Fever > 100.5 * Heavy vaginal bleeding ( >1 pad per hour) * Severe persistent headache * Shortness of breath * Reddened, hot, painful area to leg or breast * Drainage or odor from incision. * Keep incision clean and dry at all times and follow doctor's instructions regarding bathing/showering - Follow up plan Follow up: SULTANA MALONE MD [Primary Care Provider] - 3 Days DONNA WATSON MD [Staff Physician] - 3 Days
== END 2017-04-04 14:50 | disposition home or self-care (01) | DRG 778 ==
LOC: TRG 12:41 → LD 12:42 → TRG 12:49 → LD 12:49 → OBSVTOIN 13:47
PROVIDERS: ADMIT Obstetrics & Gynecology; ATTEND Obstetrics & Gynecology
DX: O60.03 Preterm labor without delivery, third trimester (principal); O62.0 Primary inadequate contractions; O99.013 Anemia complicating pregnancy, third trimester; D64.9 Anemia, unspecified; O99.113 Other diseases of the blood and blood-forming organs and certain disorders involving the immune mechanism complicating pregnancy, third trimester; O98.513 Other viral diseases complicating pregnancy, third trimester; B00.9 Herpesviral infection, unspecified; Z3A.31 31 weeks gestation of pregnancy
CPT/HCPCS: 36415; 76815; 80307; 81001; 83735; 85025; 86850; 86900; 86901; 87086; 87210; 99406; J0290; J0595; J0702; J3475; J7120